=== PATIENT | female | born 1945 | race Caucasian/White ===

== ENCOUNTER 2016-10-12 10:56 | Day surgery (SDC) | payer BC ==
[2016-10-09 11:37] LABS: PATH.CAST-FLAG NOT PRESENT; SPERM-FLAG NOT PRESENT; SRC-FLAG NOT PRESENT; XTAL-FLAG NOT PRESENT; YLC-FLAG NOT PRESENT
[2016-10-09 13:09] VITALS: BP 145/84
[~2016-10-12] VITALS: Ht 165.1 cm; Wt 72.0 kg
[~2016-10-12 10:56] MED LIST: GABA300C10 PO; MELO-190 PO
[2016-10-12] MEDS ORDERED: LACTATED RINGERS 1,000 ML IV SCH (11:21)
[2016-10-12 11:23] VITALS: BP 145/84
[2016-10-12] MEDS ORDERED: MIDAZOLAM 1 MG/ML, 2ML ONE (12:19)
[2016-10-12] MEDS ORDERED: FENTANYL PF 250 MCG/5ML ONE (12:19)
[2016-10-12] MEDS ORDERED: ACETAMINOPHEN 325 MG TABLET PO PRN (13:30)
[2016-10-12] MEDS ORDERED: MIDAZOLAM 1 MG/ML, 2ML IV PRN (13:30)
[2016-10-12] MEDS ORDERED: EPHEDRINE 50 MG/ML, 1ML IVPush PRN (13:30)
[2016-10-12] MEDS ORDERED: hydrALAzine 20 MG/ML, 1ML IV PRN (13:30)
[2016-10-12] MEDS ORDERED: HYDROcodone/APAP 7.5-325MG/15ML UDC PO PRN (13:30)
[2016-10-12] MEDS ORDERED: FENTANYL PF 100 MCG/2ML IV PRN (13:30)
[2016-10-12] MEDS ORDERED: PROMETHAZINE 25 MG/ML, 1ML IV PRN (13:30)
[2016-10-12] MEDS ORDERED: MEPERIDINE/PF 25MG/0.5ML IVPush PRN (13:30)
[2016-10-12] MEDS ORDERED: LABETALOL 5MG/ML, 20ML IV PRN (13:30)
[2016-10-12] MEDS ORDERED: HYDROmorphone 1 MG/ML, 1ML IV PRN (13:30)
[2016-10-12] MEDS ORDERED: OXYcodone 5 MG/5 ML ORAL.SOL UDC PO PRN (13:30)
[2016-10-12] MEDS ORDERED: ONDANSETRON 2MG/ML, 2ML IVPush PRN (13:30)
[2016-10-12] MEDS ORDERED: CIPROFLOXACIN 400MG/200ML PMX ONE (14:16)
[2016-10-12] MEDS ORDERED: PROPOFOL 10 MG/ML, 20ML ONE (14:16)
[2016-10-12] MEDS ORDERED: ONDANSETRON 2MG/ML, 2ML ONE (14:16)
[2016-10-12] MEDS ORDERED: DEXAMETHASONE 4 MG/ML, 1ML ONE (14:16)
[2016-10-12] MEDS ORDERED: OMNIPAQUE 350 MG/ML, 50 ML BOTTLE ONE (15:22)
[2016-10-12] MEDS ORDERED: KETOROLAC 30 MG/1 ML IV PRN (15:30)
[2016-10-12] MEDS ORDERED: OXYcodone/APAP 5/325MG TABLET PO PRN (15:30)
[2016-10-12] MEDS ORDERED: ONDANSETRON 2MG/ML, 2ML IV PRN (15:30)
== END 2016-10-12 17:00 | disposition home or self-care (01) ==
LOC: OUT 10:56
PROVIDERS: ATTEND Urology
DX: N20.1 Calculus of ureter (principal); F17.210 Nicotine dependence, cigarettes, uncomplicated; M19.90 Unspecified osteoarthritis, unspecified site; Z87.440 Personal history of urinary (tract) infections; Z90.49 Acquired absence of other specified parts of digestive tract
CPT/HCPCS: 52356; 74420; 76000; 81001; 82360; 87086; 88300; 93005; C1758; C1769; C2617; J0744; J1100; J2250; J2405; J2704; J3010; J7120; Q9967

== ENCOUNTER 2018-12-29 14:35 | Emergency (ER) | payer BC, OTHER ==
[~2018-12-29] VITALS: Ht 165.1 cm; Wt 70.0 kg
[2018-12-29 14:42] VITALS: BP 126/73
== END 2018-12-29 18:13 | disposition home or self-care (01) ==
LOC: ED 17:51
DX: I82.411 Acute embolism and thrombosis of right femoral vein (principal); I10 Essential (primary) hypertension
CPT/HCPCS: 99284

== ENCOUNTER 2018-12-30 19:33 | Inpatient (IN) | payer OTHER ==
[~2018-12-30] VITALS: Ht 165.1 cm; Wt 77.6 kg
[~2018-12-30 19:33] MED LIST changes: +ACET-1600 PO; +CHOL10003 PO; +GABA400C PO; -MELO-190 PO; +MELO7.5T31 PO; +MULT-717 PO; +OXYC5TAB3 PO; +TURM538C PO; +UBID100C24 PO
[2018-12-30 20:11] LABS: BASOPHILS # (AUTO) 0.04 x10^3/uL (0-0.1); BASOPHILS % (AUTO) 0 % (0-1); EOSINOPHILS # (AUTO) 0.17 x10^3/uL (0-0.4); EOSINOPHILS % (AUTO) 2 % (1-7); LYMPHOCYTES # (AUTO) 1.67 x10^3/uL (1-3.4); LYMPHOCYTES % (AUTO) 15 % (22-44); MD NO; MEAN CORPUSCULAR HEMOGLOBIN 31.2 pg (27.0-34.8); MEAN CORPUSCULAR HGB CONC 31.5 g/dL (32.4-35.8); MEAN PLATELET VOLUME 6.7 fL (7.4-10.4); MONOCYTES # (AUTO) 0.87 x10^3/uL (0.2-0.8); MONOCYTES % (AUTO) 8 % (2-9); NEUTROPHILS # (AUTO) 8.38 x10^3/uL (1.8-6.8); NEUTROPHILS % (AUTO) 75 % (42-75); PLATELET COUNT 508 x10^3/uL (130-400); RED BLOOD COUNT 3.66 x10^6/uL (3.82-5.3)
[2018-12-30 20:23] LABS: ALANINE AMINOTRANSFERASE 23 U/L (12-78); ALBUMIN 3.6 g/dL (3.4-5.0); ANION GAP 6 mmol/L (5-15); CALCIUM 9.2 mg/dL (8.5-10.1); CHLORIDE 102 mmol/L (98-107); CREATININE 1.16 mg/dL (0.55-1.02)
[2018-12-30 20:28] LABS: ALKALINE PHOSPHATASE 262 U/L (45-117); BILIRUBIN,TOTAL 0.7 mg/dL (0.2-1.0); TOTAL PROTEIN 7.9 g/dL (6.4-8.2); TROPONIN I < 0.015 ng/mL (0.000-0.045)
[2018-12-30] MEDS ORDERED: ONDANSETRON 2MG/ML, 2ML ONE (20:46)
[2018-12-30] MEDS ORDERED: MORPHINE SULFATE 4 MG/ML, 1ML ONE ×2 (20:46→21:55)
--- NOTE | 2018-12-30 20:59 | NUR ---
PT TO CT SCAN.
[2018-12-30] MEDS ORDERED: MORPHINE SULFATE 4 MG/ML, 1ML IVPush ONE (21:00)
[2018-12-30] MEDS ORDERED: ONDANSETRON 2MG/ML, 2ML IVPush ONE (21:00)
--- NOTE | 2018-12-30 21:00 | NUR ---
pt refused oxygen. pt a&ox4
--- NOTE | 2018-12-30 21:28 | NUR ---
PT PLACED ON BLOW BY OXYGEN, O2 SAT IMPROVED
[2018-12-30] MEDS ORDERED: OMNIPAQUE 350 MG/ML, 100ML BOTTLE ONE (21:30)
[2018-12-30] MEDS ORDERED: SODIUM CHLORIDE FLUSH 10ML SYR IVF ONE (21:30)
[2018-12-30] MEDS ORDERED: SODIUM CHLORIDE 0.9% 1,000ML IVBOLUS ONE (21:30)
[2018-12-30] MEDS ORDERED: KETOROLAC 30 MG/1 ML ONE (21:54)
[2018-12-30] MEDS ORDERED: HEPARIN 5,000 UNITS/ML, 1ML ONE (21:54)
[2018-12-30] MEDS ORDERED: CEFTRIAXONE PMX 1GM/50ML 50 ML ONE (21:54)
[2018-12-30] MEDS ORDERED: LORazepam 2 MG/ML, 1ML ONE (21:55)
[2018-12-30] MEDS ORDERED: HEPARIN 25,000 UNITS/500ML PMX 500 ML ONE (21:55)
[2018-12-30] MEDS ORDERED: MORPHINE SULFATE 4 MG/ML, 1ML IVPush PRN (22:00)
[2018-12-30] MEDS ORDERED: HEPARIN 25,000 UNITS/500ML PMX 500 ML IV PRN (22:00)
[2018-12-30] MEDS ORDERED: LORazepam 2 MG/ML, 1ML IVP ONE (22:00)
[2018-12-30] MEDS ORDERED: KETOROLAC 30 MG/1 ML IVPush ONE (22:00)
[2018-12-30] MEDS ORDERED: HEPARIN 5,000 UNITS/ML, 1ML IV PRN (22:00)
[2018-12-30] MEDS ORDERED: CEFTRIAXONE 1,000 MG IM ONE (22:00)
[2018-12-30] MEDS ORDERED: AZITHROMYCIN 500 MG in SODIUM CHLORIDE 0.9% 250 ML IVPB ONE (22:00)
[2018-12-30] MEDS ORDERED: HEPARIN 5,000 UNITS/ML, 1ML IV ONE (22:00)
--- NOTE | 2018-12-30 22:21 | NUR ---
verified bolus dose heparin with Chandler MCGUIRE aware of Anti Xa 1.31--states no changes to initial heparin orders.
[2018-12-30] MEDS ORDERED: CEFTRIAXONE PMX 1GM/50ML 50 ML IV ONE (22:30)
--- NOTE | 2018-12-30 23:30 | NUR ---
INTERNAL MED MD AT BEDSIDE ASSESSING THE PATIENT. PT DROWSY, O2 SAT DROPS WITHOUT O2 APPLIED, PT WILL NOT TOLERATE A MASK. MD AWARE. PT RECIEVING BLOWBY OXYGEN AT THIS TIME ..
[2018-12-31] MEDS ORDERED: ONDANSETRON 2MG/ML, 2ML IVPush PRN
[2018-12-31] MEDS ORDERED: SODIUM CHLORIDE 0.9% 1,000ML IVBOLUS ONE
[2018-12-31] MEDS ORDERED: ACETAMINOPHEN 325 MG TABLET PO PRN
[2018-12-31] MEDS ORDERED: PROMETHAZINE 25 MG/ML, 1ML IM PRN
--- NOTE | 2018-12-31 00:03 | NUR ---
DR. CAAL NOTIFIED OF PT BLOOD PRESSURE. WILL CONTACT IM TO UPGRADE TO ICU. PT A&OX4. PT PLACED ON OPTIFLO MASK O2 AT 100%
[2018-12-31] MEDS: GABAPENTIN 400 MG CAPSULE PO SCH ×3 (02:08→20:54)
[2018-12-31 04:15] VITALS: BP 96/42
[2018-12-31 04:35] LABS: BASOPHILS # (AUTO) 0.04 x10^3/uL (0-0.1); BASOPHILS % (AUTO) 1 % (0-1); EOSINOPHILS % (AUTO) 3 % (1-7); LYMPHOCYTES # (AUTO) 1.73 x10^3/uL (1-3.4); LYMPHOCYTES % (AUTO) 23 % (22-44); MD NO; MEAN CORPUSCULAR HEMOGLOBIN 32.6 pg (27.0-34.8); MEAN CORPUSCULAR HGB CONC 32.6 g/dL (32.4-35.8); MEAN CORPUSCULAR VOLUME 100.2 fL (80-100); MEAN PLATELET VOLUME 6.9 fL (7.4-10.4); MONOCYTES # (AUTO) 0.83 x10^3/uL (0.2-0.8); MONOCYTES % (AUTO) 11 % (2-9); NEUTROPHILS # (AUTO) 4.86 x10^3/uL (1.8-6.8); NEUTROPHILS % (AUTO) 63 % (42-75); PLATELET COUNT 325 x10^3/uL (130-400); RED BLOOD COUNT 2.76 x10^6/uL (3.82-5.3); RED CELL DISTRIBUTION WIDTH 16.6 % (9.6-15.2)
[2018-12-31 04:47] LABS: ANION GAP 6 mmol/L (5-15); CALCIUM 8.2 mg/dL (8.5-10.1); CHLORIDE 108 mmol/L (98-107)
[2018-12-31 04:52] LABS: CREATININE 0.81 mg/dL (0.55-1.02); TROPONIN I < 0.015 ng/mL (0.000-0.045)
[2018-12-31] MEDS: morphine SULFATE 10 MG/ML, 1ML IVPush PRN ×2 (05:19→15:39)
[2018-12-31] MEDS: CHOLECALCIFEROL 1,000 UNIT TABLET PO SCH (10:43)
[2018-12-31] MEDS: OXYcodone/APAP 5/325MG TABLET PO PRN ×3 (10:43→23:00)
[2018-12-31] MEDS: SENNA/DOCUSATE TABLET PO SCH (10:44)
[2018-12-31 11:25] LABS: TROPONIN I < 0.015 ng/mL (0.000-0.045)
[2018-12-31 20:10] VITALS: BP 137/51
[2019-01-01] MEDS: OXYcodone/APAP 5/325MG TABLET PO PRN ×3 (02:44→20:19)
[2019-01-01 04:00] VITALS: BP 110/57
[2019-01-01 06:18] LABS: BASOPHILS # (AUTO) 0.05 x10^3/uL (0-0.1); BASOPHILS % (AUTO) 1 % (0-1); EOSINOPHILS # (AUTO) 0.22 x10^3/uL (0-0.4); EOSINOPHILS % (AUTO) 3 % (1-7); LYMPHOCYTES # (AUTO) 1.29 x10^3/uL (1-3.4); LYMPHOCYTES % (AUTO) 18 % (22-44); MD NO; MEAN CORPUSCULAR HEMOGLOBIN 32.5 pg (27.0-34.8); MEAN CORPUSCULAR HGB CONC 32.5 g/dL (32.4-35.8); MEAN CORPUSCULAR VOLUME 100.1 fL (80-100); MEAN PLATELET VOLUME 6.9 fL (7.4-10.4); MONOCYTES # (AUTO) 0.87 x10^3/uL (0.2-0.8); MONOCYTES % (AUTO) 12 % (2-9); NEUTROPHILS # (AUTO) 4.56 x10^3/uL (1.8-6.8); NEUTROPHILS % (AUTO) 65 % (42-75); PLATELET COUNT 311 x10^3/uL (130-400); RED BLOOD COUNT 2.69 x10^6/uL (3.82-5.3); RED CELL DISTRIBUTION WIDTH 16.1 % (9.6-15.2)
[2019-01-01 06:29] LABS: ANION GAP 6 mmol/L (5-15); CALCIUM 8.7 mg/dL (8.5-10.1); CHLORIDE 105 mmol/L (98-107); CREATININE 0.67 mg/dL (0.55-1.02)
[2019-01-01] MEDS: GABAPENTIN 400 MG CAPSULE PO SCH ×2 (09:13→20:19)
[2019-01-01] MEDS: RIVAROXABAN 15 MG TABLET PO SCH ×2 (09:13→20:19)
[2019-01-01] MEDS: SENNA/DOCUSATE TABLET PO SCH (09:14)
[2019-01-01] MEDS: CHOLECALCIFEROL 1,000 UNIT TABLET PO SCH (09:14)
[2019-01-01 13:47] VITALS: BP 116/69
[2019-01-01 21:23] VITALS: BP 121/59
[2019-01-02 01:45] VITALS: BP 96/56
[2019-01-02] MEDS: OXYcodone/APAP 5/325MG TABLET PO PRN ×2 (04:38→20:35)
[2019-01-02 05:47] LABS: BASOPHILS # (AUTO) 0.03 x10^3/uL (0-0.1); BASOPHILS % (AUTO) 1 % (0-1); EOSINOPHILS # (AUTO) 0.22 x10^3/uL (0-0.4); EOSINOPHILS % (AUTO) 3 % (1-7); LYMPHOCYTES # (AUTO) 1.39 x10^3/uL (1-3.4); LYMPHOCYTES % (AUTO) 19 % (22-44); MD NO; MEAN CORPUSCULAR HEMOGLOBIN 32.5 pg (27.0-34.8); MEAN CORPUSCULAR HGB CONC 32.6 g/dL (32.4-35.8); MEAN CORPUSCULAR VOLUME 99.5 fL (80-100); MEAN PLATELET VOLUME 7.1 fL (7.4-10.4); MONOCYTES # (AUTO) 0.79 x10^3/uL (0.2-0.8); MONOCYTES % (AUTO) 11 % (2-9); NEUTROPHILS # (AUTO) 4.91 x10^3/uL (1.8-6.8); NEUTROPHILS % (AUTO) 67 % (42-75); PLATELET COUNT 350 x10^3/uL (130-400); RED BLOOD COUNT 2.72 x10^6/uL (3.82-5.3); RED CELL DISTRIBUTION WIDTH 16.1 % (9.6-15.2)
[2019-01-02 05:59] LABS: ANION GAP 4 mmol/L (5-15); CALCIUM 8.9 mg/dL (8.5-10.1); CHLORIDE 105 mmol/L (98-107)
[2019-01-02 06:01] LABS: CREATININE 0.78 mg/dL (0.55-1.02)
[2019-01-02 07:10] VITALS: BP 95/50
[2019-01-02] MEDS: SENNA/DOCUSATE TABLET PO SCH (09:23)
[2019-01-02] MEDS: CHOLECALCIFEROL 1,000 UNIT TABLET PO SCH (09:24)
[2019-01-02] MEDS: GABAPENTIN 400 MG CAPSULE PO SCH ×2 (09:24→20:25)
[2019-01-02] MEDS: RIVAROXABAN 15 MG TABLET PO SCH ×2 (09:24→20:25)
[2019-01-02 13:17] VITALS: BP 119/64
[2019-01-02 13:34] LABS: ALANINE AMINOTRANSFERASE 18 U/L (12-78); ALBUMIN 2.5 g/dL (3.4-5.0)
[2019-01-02 13:35] LABS: ALKALINE PHOSPHATASE 164 U/L (45-117); BILIRUBIN,TOTAL 0.2 mg/dL (0.2-1.0); TOTAL PROTEIN 6.2 g/dL (6.4-8.2)
[2019-01-02 13:41] LABS: BILIRUBIN, DIRECT < 0.1 mg/dL (0.1-0.2); BILIRUBIN,INDIRECT 0.1 mg/dL (0.0-2.0)
[2019-01-02 19:36] VITALS: BP 121/60
[2019-01-03 01:19] VITALS: BP 106/67
[2019-01-03 07:34] VITALS: BP 128/66
[2019-01-03] MEDS: CHOLECALCIFEROL 1,000 UNIT TABLET PO SCH (10:06)
[2019-01-03] MEDS: RIVAROXABAN 15 MG TABLET PO SCH (10:07)
[2019-01-03] MEDS: SENNA/DOCUSATE TABLET PO SCH (10:07)
[2019-01-03] MEDS: GABAPENTIN 400 MG CAPSULE PO SCH (10:07)
[2019-01-03] MEDS ORDERED: SENN-193 PO (11:28)
[2019-01-03] MEDS ORDERED: POLY17PO15 PO (11:28)
[2019-01-03] MEDS ORDERED: RIVA1TAB PO (11:28)
[2019-01-03] MEDS ORDERED: MAGNESIUM CITRATE 300ML ORAL SOL PO ONE (11:30)
[2019-01-03 12:57] VITALS: BP 112/66
[2019-01-03] MEDS ORDERED: HYDR-3240 PO (14:57)
== END 2019-01-03 15:12 | disposition home or self-care (01) | DRG 175 ==
LOC: ED 21:09 → EDIP 22:33 → CCU 12-31 01:24 → 4WST 01-01 10:25 → DCLOUNGE 01-03 14:55
PROVIDERS: ADMIT Family Medicine; ATTEND Family Medicine
DX: I26.99 Other pulmonary embolism without acute cor pulmonale (principal); J96.01 Acute respiratory failure with hypoxia; I82.4Z1 Acute embolism and thrombosis of unspecified deep veins of right distal lower extremity; J43.9 Emphysema, unspecified; I10 Essential (primary) hypertension; D64.9 Anemia, unspecified; G89.29 Other chronic pain; M54.9 Dorsalgia, unspecified; E86.0 Dehydration; I35.8 Other nonrheumatic aortic valve disorders; Z96.642 Presence of left artificial hip joint; Z87.891 Personal history of nicotine dependence; Z90.49 Acquired absence of other specified parts of digestive tract; Z98.1 Arthrodesis status
CPT/HCPCS: 36415; 71045; 71275; 80048; 80053; 80076; 83735; 83880; 84100; 84484; 85025; 85520; 87040; 87081; 93005; 93306; 96361; 96374; 96375; 96376; G0378; J0456; J0696; J1644; J1885; J2405; Q9967; J2060; J2270; J7030; J7050

== ENCOUNTER 2019-06-14 16:24 | Emergency (ER) | payer BC ==
[~2019-06-14] VITALS: Ht 167.6 cm; Wt 79.4 kg
[~2019-06-14 16:24] MED LIST changes: +HYDR-3240 PO; +POLY17PO15 PO; +RIVA1TAB PO; +SENN-193 PO
--- NOTE | 2019-06-14 16:49 | NUR ---
TABLE ASSEMBLER: PT UPSET ABOUT WAIT TIME. ASKING THIS RN IF THEY SHOULD LEAVE AND COME BACK IN THREE HOURS. EDUCATED ON RECOMMENDATION TO REMAIN IN ED LOBBY FOR ROOM/CHANGES THAT CAN BE NOTIFIED IMMEDIATELY. PT AND FAMILY REMAIN UPSET ABOUT WAIT TIME. RE-EDUCATED TO WAIT IN ED LOBBY FOR ROOM.
[2019-06-14 17:16] LABS: BASOPHILS # (AUTO) 0.04 x10^3/uL (0-0.1); BASOPHILS % (AUTO) 1 % (0-1); EOSINOPHILS # (AUTO) 0.09 x10^3/uL (0-0.4); EOSINOPHILS % (AUTO) 1 % (1-7); LYMPHOCYTES # (AUTO) 2.02 x10^3/uL (1-3.4); LYMPHOCYTES % (AUTO) 27 % (22-44); MD NO; MEAN CORPUSCULAR HEMOGLOBIN 29.8 pg (27.0-34.8); MEAN CORPUSCULAR HGB CONC 32.6 g/dL (32.4-35.8); MEAN CORPUSCULAR VOLUME 91.4 fL (80-100); MEAN PLATELET VOLUME 7.8 fL (7.4-10.4); MONOCYTES % (AUTO) 7 % (2-9); NEUTROPHILS # (AUTO) 4.74 x10^3/uL (1.8-6.8); NEUTROPHILS % (AUTO) 64 % (42-75); PLATELET COUNT 386 x10^3/uL (130-400); RED BLOOD COUNT 4.51 x10^6/uL (3.82-5.3); RED CELL DISTRIBUTION WIDTH 15.5 % (9.6-15.2)
[2019-06-14 17:27] LABS: ALANINE AMINOTRANSFERASE 20 U/L (12-78); ALBUMIN 3.6 g/dL (3.4-5.0); ANION GAP 7 mmol/L (5-15); CALCIUM 8.9 mg/dL (8.5-10.1); CHLORIDE 108 mmol/L (98-107); CREATININE 1.06 mg/dL (0.55-1.02)
[2019-06-14 17:31] LABS: ALKALINE PHOSPHATASE 132 U/L (45-117); BILIRUBIN,TOTAL 0.2 mg/dL (0.2-1.0); TOTAL PROTEIN 7.7 g/dL (6.4-8.2)
--- NOTE | 2019-06-14 20:33 | NUR ---
REPORT FROM ZACH HORN.
[2019-06-14 20:34] VITALS: BP 115/69
--- NOTE | 2019-06-14 20:35 | NUR ---
REPORT TO LINCOLN SERRANO TO CT SCAN AT 2036
[2019-06-14] MEDS ORDERED: OMNIPAQUE 350 MG/ML, 100ML BOTTLE ONE (20:57)
== END 2019-06-14 22:09 | disposition home or self-care (01) ==
LOC: ED 21:45
DX: R91.1 Solitary pulmonary nodule (principal); R04.2 Hemoptysis; I10 Essential (primary) hypertension; Z86.718 Personal history of other venous thrombosis and embolism; Z87.891 Personal history of nicotine dependence
CPT/HCPCS: 36415; 71046; 71275; 80053; 83880; 84145; 85025; 87633; 93005; 93971; 99284; Q9967

== ENCOUNTER → 2019-08-24 | Outpatient (CLI) | payer BC | END | disposition home or self-care (01) | LOC: CFH 10:34 | PROVIDERS: ATTEND Internal Medicine | DX: J43.9 Emphysema, unspecified (principal); J18.9 Pneumonia, unspecified organism; I70.0 Atherosclerosis of aorta | CPT/HCPCS: 71250 ==

== ENCOUNTER → 2020-01-09 | Outpatient (CLI) | payer BC | END | disposition home or self-care (01) | LOC: CFH 13:51 | PROVIDERS: ATTEND Family Medicine | DX: J43.9 Emphysema, unspecified (principal); R91.1 Solitary pulmonary nodule | CPT/HCPCS: 71250 ==

== ENCOUNTER → 2020-01-25 | Outpatient (CLI) | payer BC ==
[~2020-01-25] MED LIST changes: +MAGN250T8 PO; +OLME20TA17 PO; +RIVA20TA PO
[2020-01-25 15:36] LABS: ALBUMIN 3.9 g/dL (3.4-5.0); ANION GAP 10 mmol/L (5-15); CALCIUM 8.9 mg/dL (8.5-10.1); CHLORIDE 108 mmol/L (98-107)
[2020-01-25 15:39] LABS: ALANINE AMINOTRANSFERASE 20 U/L (12-78); ALKALINE PHOSPHATASE 122 U/L (45-117); BILIRUBIN,TOTAL 0.6 mg/dL (0.2-1.0); CREATININE 1.12 mg/dL (0.55-1.02); TOTAL PROTEIN 8.2 g/dL (6.4-8.2)
== END | disposition home or self-care (01) ==
LOC: STAR 13:24
PROVIDERS: ATTEND Internal Medicine
DX: Z01.818 Encounter for other preprocedural examination (principal); Z11.59 Encounter for screening for other viral diseases; I44.5 Left posterior fascicular block; I45.10 Unspecified right bundle-branch block; I51.7 Cardiomegaly
CPT/HCPCS: 36415; 80053; 87635; 93005

== ENCOUNTER → 2020-01-30 | Outpatient (CLI) | payer BC | END | disposition home or self-care (01) | LOC: PETCFH 13:24 | PROVIDERS: ATTEND Internal Medicine | DX: R91.8 Other nonspecific abnormal finding of lung field (principal); J43.9 Emphysema, unspecified; G89.29 Other chronic pain; I10 Essential (primary) hypertension; Z90.49 Acquired absence of other specified parts of digestive tract; Z96.642 Presence of left artificial hip joint | CPT/HCPCS: 71250; 78815; A9552 ==

== ENCOUNTER 2020-01-31 11:19 | Day surgery (SDC) | payer BC ==
[~2020-01-31] VITALS: Ht 165.1 cm; Wt 77.5 kg
[2020-01-31] MEDS ORDERED: PROPOFOL 50 ML ONE ×2 (11:40→13:57)
[2020-01-31] MEDS ORDERED: ROCURONIUM 10MG/ML,5ML ONE (11:40)
[2020-01-31] MEDS ORDERED: MIDAZOLAM 1 MG/ML, 2ML ONE (11:40)
[2020-01-31] MEDS ORDERED: FENTANYL PF 250 MCG/5ML ONE (11:40)
[2020-01-31 11:47] VITALS: BP 124/78
[2020-01-31] MEDS ORDERED: CHLORHEXIDINE 15 ML UDC MM ONE (12:00)
[2020-01-31] MEDS ORDERED: LACTATED RINGERS 1,000 ML IV SCH (12:00)
[2020-01-31] MEDS ORDERED: SUGAMMADEX 200 MG/2 ML IVPush ONE (13:17)
[2020-01-31] MEDS ORDERED: ONDANSETRON 2MG/ML, 2ML ONE (13:17)
[2020-01-31] MEDS ORDERED: OXYcodone 5 MG/5 ML ORAL.SOL UDC PO PRN (13:30)
[2020-01-31] MEDS ORDERED: ACETAMINOPHEN 325 MG TABLET PO PRN (13:30)
[2020-01-31] MEDS ORDERED: ONDANSETRON 2MG/ML, 2ML IVPush PRN (13:30)
[2020-01-31] MEDS ORDERED: HYDROmorphone 1 MG/ML, 1ML INJ IVPush PRN (13:30)
[2020-01-31] MEDS ORDERED: PROMETHAZINE 25 MG/ML, 1ML IVPush PRN (13:30)
[2020-01-31] MEDS ORDERED: DIAZEPAM 5 MG/ML, 2ML IVPush PRN (13:30)
[2020-01-31] MEDS ORDERED: LABETALOL 5MG/ML, 20ML IV PRN (13:30)
[2020-01-31] MEDS ORDERED: hydrALAzine 20 MG/ML, 1ML IV PRN (13:30)
[2020-01-31] MEDS ORDERED: FENTANYL PF 100 MCG/2ML IV PRN (13:30)
[2020-02-22] MEDS ORDERED: METO25TA35 PO (15:22)
== END 2020-01-31 16:00 | disposition home or self-care (01) ==
LOC: OUT 11:19
PROVIDERS: ATTEND Internal Medicine
DX: R91.8 Other nonspecific abnormal finding of lung field (principal); C34.31 Malignant neoplasm of lower lobe, right bronchus or lung; I10 Essential (primary) hypertension; E03.9 Hypothyroidism, unspecified; J43.9 Emphysema, unspecified; Z79.01 Long term (current) use of anticoagulants; Z79.899 Other long term (current) drug therapy; Z88.0 Allergy status to penicillin; Z88.1 Allergy status to other antibiotic agents; Z91.040 Latex allergy status; Z91.048 Other nonmedicinal substance allergy status; Z86.718 Personal history of other venous thrombosis and embolism; Z86.711 Personal history of pulmonary embolism
CPT/HCPCS: 31623; 31624; 31627; 31628; 71045; 88172; 88173; 88305; J2250; J2405; J2704; J3010; J7120; 31625; 31629; 76000

== ENCOUNTER → 2020-02-22 | Outpatient (CLI) | payer BC ==
[~2020-02-22] MED LIST changes: +METO25TA35 PO
[2020-02-22 15:50] LABS: BASOPHILS # (AUTO) 0.06 x10^3/uL (0-0.1); BASOPHILS % (AUTO) 1 % (0-1); EOSINOPHILS # (AUTO) 0.07 x10^3/uL (0-0.4); EOSINOPHILS % (AUTO) 1 % (1-7); LYMPHOCYTES # (AUTO) 1.82 x10^3/uL (1-3.4); LYMPHOCYTES % (AUTO) 29 % (22-44); MD NO; MEAN CORPUSCULAR HEMOGLOBIN 30.4 pg (27.0-34.8); MEAN CORPUSCULAR HGB CONC 32.2 g/dL (32.4-35.8); MEAN CORPUSCULAR VOLUME 94.4 fL (80-100); MEAN PLATELET VOLUME 7.4 fL (7.4-10.4); MONOCYTES % (AUTO) 6 % (2-9); NEUTROPHILS # (AUTO) 4.03 x10^3/uL (1.8-6.8); NEUTROPHILS % (AUTO) 63 % (42-75); PLATELET COUNT 333 x10^3/uL (130-400); RED BLOOD COUNT 4.24 x10^6/uL (3.82-5.3); RED CELL DISTRIBUTION WIDTH 15.1 % (9.6-15.2)
[2020-02-22 15:57] LABS: ALBUMIN 3.6 g/dL (3.4-5.0); ANION GAP 6 mmol/L (5-15); CALCIUM 9.4 mg/dL (8.5-10.1); CHLORIDE 108 mmol/L (98-107)
[2020-02-22 16:01] LABS: ALANINE AMINOTRANSFERASE 20 U/L (12-78); ALKALINE PHOSPHATASE 113 U/L (45-117); BILIRUBIN,TOTAL 0.5 mg/dL (0.2-1.0); TOTAL PROTEIN 7.7 g/dL (6.4-8.2)
== END | disposition home or self-care (01) ==
LOC: STAR 14:21
PROVIDERS: ATTEND Surgery
DX: Z01.812 Encounter for preprocedural laboratory examination (principal); Z20.828 Contact with and (suspected) exposure to other viral communicable diseases
CPT/HCPCS: 36415; 80053; 85025; 87635

== ENCOUNTER 2020-02-26 06:05 | Inpatient (IN) | payer MEDICARE, BC ==
[~2020-02-26] VITALS: Ht 166.4 cm; Wt 83.1 kg
[2020-02-26] MEDS ORDERED: LACTATED RINGERS 1,000 ML IV SCH (06:42)
[2020-02-26] MEDS ORDERED: LIDOCAINE-MPF 1%, 2ML INFIL ONE (07:00)
[2020-02-26] MEDS ORDERED: CHLORHEXIDINE 15 ML UDC MM ONE (07:00)
[2020-02-26] MEDS ORDERED: BUPIVACAINE/PF 0.5% ONE (07:01)
[2020-02-26] MEDS ORDERED: EPINEPHRINE 1 MG/ML, 1ML ONE (07:01)
[2020-02-26] MEDS ORDERED: FENTANYL PF 250 MCG/5ML ONE (07:29)
[2020-02-26] MEDS ORDERED: MIDAZOLAM 1 MG/ML, 2ML ONE (07:29)
[2020-02-26] MEDS ORDERED: CEFAZOLIN 1,000 MG ONE (07:54)
[2020-02-26] MEDS ORDERED: LIDOCAINE-MPF 2% ,5ML ONE (07:54)
[2020-02-26] MEDS ORDERED: BUPIVACAINE/PF-EPI 0.5% 1:200K INFIL ONE (08:27)
[2020-02-26] MEDS ORDERED: OXYcodone 5 MG/5 ML ORAL.SOL UDC PO PRN (09:00)
[2020-02-26] MEDS ORDERED: LABETALOL 5MG/ML, 20ML IV PRN (09:00)
[2020-02-26] MEDS ORDERED: ONDANSETRON 2MG/ML, 2ML IVPush PRN ×2 (09:00→11:30)
[2020-02-26] MEDS ORDERED: hydrALAzine 20 MG/ML, 1ML IV PRN (09:00)
[2020-02-26] MEDS ORDERED: HYDROmorphone 1 MG/ML, 1ML INJ IVPush PRN (09:00)
[2020-02-26] MEDS ORDERED: PROMETHAZINE 25 MG SUPP PR PRN (09:00)
[2020-02-26] MEDS ORDERED: ACETAMINOPHEN 325 MG TABLET PO PRN (09:00)
[2020-02-26] MEDS ORDERED: LORazepam 2 MG/ML, 1ML IVPush PRN (09:00)
[2020-02-26] MEDS ORDERED: PROMETHAZINE 25 MG/ML, 1ML IVPush PRN (09:00)
[2020-02-26] MEDS ORDERED: ALBUTEROL SULFATE 2.5 MG/3 ML NPPB PRN (09:00)
[2020-02-26] MEDS ORDERED: DEXAMETHASONE 4 MG/ML, 1ML ONE (10:00)
[2020-02-26] MEDS ORDERED: GLYCOPYRROLATE 0.2MG/1ML, 5ML ONE (10:00)
[2020-02-26] MEDS ORDERED: SUCCINYLCHOLINE 20 MG/ML, 10ML ONE (10:00)
[2020-02-26] MEDS ORDERED: NEOSTIGMINE 1 MG/ML, 10ML ONE (10:00)
[2020-02-26] MEDS ORDERED: PROPOFOL 10 MG/ML, 20ML ONE (10:00)
[2020-02-26] MEDS ORDERED: ONDANSETRON 2MG/ML, 2ML ONE (10:00)
[2020-02-26] MEDS ORDERED: ROCURONIUM 10 MG/ML,10ML ONE ×2 (10:00)
[2020-02-26] MEDS ORDERED: SUGAMMADEX 200 MG/2 ML IVPush ONE (10:15)
[2020-02-26] MEDS ORDERED: FENTANYL PF 100 MCG/2ML ONE ×2 (10:23→11:21)
[2020-02-26] MEDS ORDERED: LORazepam 2 MG/ML, 1ML ONE (11:21)
[2020-02-26] MEDS: FENTANYL PF 100 MCG/2ML IV PRN ×2 (11:24→11:52)
[2020-02-26] MEDS ORDERED: ACETAMINOPHEN 650 MG SUPP PR SCH (11:30)
[2020-02-26] MEDS ORDERED: HYDROmorphone PCA 30 MG/30 ML IVPush PRN (11:30)
[2020-02-26] MEDS ORDERED: hydrALAzine 20 MG/ML, 1ML IVPush PRN (11:30)
[2020-02-26] MEDS ORDERED: LORazepam 1MG TABLET PO PRN (11:30)
[2020-02-26] MEDS ORDERED: LABETALOL 5MG/ML 40ML VIAL IVPush PRN (11:30)
[2020-02-26 13:00] VITALS: BP 154/87
[2020-02-26] MEDS: HEPARIN 5,000 UNITS/ML, 1ML SQ SCH ×2 (14:52→23:18)
[2020-02-26] MEDS: KETOROLAC 30 MG/1 ML IVPush SCH ×2 (14:52→21:46)
[2020-02-26] MEDS: D5%-0.45NACL+KCL 20MEQ 1,000 ML IV SCH (15:05)
[2020-02-26] MEDS: ACETAMINOPHEN 500 MG TABLET PO SCH ×2 (16:05→21:46)
[2020-02-26] MEDS: METOPROLOL TARTRATE 25 MG TAB PO SCH (18:41)
[2020-02-26 20:35] VITALS: BP 172/85
[2020-02-26] MEDS ORDERED: GLYCERIN ADULT SUPP PR PRN (21:30)
[2020-02-26] MEDS ORDERED: POLYETHYLENE GLYCOL 17 GM PACKET NG PRN (21:30)
[2020-02-26] MEDS: SENNA/DOCUSATE TABLET PO SCH (21:45)
[2020-02-27 01:42] VITALS: BP 158/80
[2020-02-27] MEDS: D5%-0.45NACL+KCL 20MEQ 1,000 ML IV SCH ×2 (02:43→07:34)
[2020-02-27] MEDS: ACETAMINOPHEN 500 MG TABLET PO SCH ×4 (03:30→21:33)
[2020-02-27 03:55] VITALS: BP 134/75
[2020-02-27] MEDS: KETOROLAC 30 MG/1 ML IVPush SCH ×3 (05:06→21:33)
[2020-02-27 05:46] LABS: CHLORIDE 108 mmol/L (98-107)
[2020-02-27 05:54] LABS: ANION GAP 7 mmol/L (5-15); CALCIUM 9.1 mg/dL (8.5-10.1); CREATININE 0.87 mg/dL (0.55-1.02)
[2020-02-27 06:17] LABS: MEAN CORPUSCULAR HEMOGLOBIN 30.9 pg (27.0-34.8); MEAN CORPUSCULAR HGB CONC 32.4 g/dL (32.4-35.8); MEAN CORPUSCULAR VOLUME 95.2 fL (80-100); MEAN PLATELET VOLUME 7.7 fL (7.4-10.4); PLATELET COUNT 287 x10^3/uL (130-400); RED BLOOD COUNT 3.68 x10^6/uL (3.82-5.3); RED CELL DISTRIBUTION WIDTH 15.3 % (9.6-15.2)
[2020-02-27] MEDS: METOPROLOL TARTRATE 25 MG TAB PO SCH ×2 (06:37→17:58)
[2020-02-27] MEDS: HEPARIN 5,000 UNITS/ML, 1ML SQ SCH ×2 (06:37→15:27)
[2020-02-27 06:38] LABS: BASOPHILS # (AUTO) 0.03 x10^3/uL (0-0.1); BASOPHILS % (AUTO) 0 % (0-1); EOSINOPHILS % (AUTO) 0 % (1-7); LYMPHOCYTES # (AUTO) 1.08 x10^3/uL (1-3.4); LYMPHOCYTES % (AUTO) 12 % (22-44); MD SCAN; MONOCYTES # (AUTO) 0.64 x10^3/uL (0.2-0.8); MONOCYTES % (AUTO) 7 % (2-9); NEUTROPHILS % (AUTO) 81 % (42-75)
[2020-02-27 08:12] VITALS: BP 136/81
[2020-02-27] MEDS: MAGNESIUM OXIDE 400 MG TABLET PO SCH (08:41)
[2020-02-27] MEDS: SENNA/DOCUSATE TABLET PO SCH ×2 (08:41→21:33)
[2020-02-27] MEDS: GABAPENTIN 400 MG CAPSULE PO SCH (08:41)
[2020-02-27] MEDS: LOSARTAN 100 MG TAB PO SCH (08:42)
[2020-02-27 12:02] VITALS: BP 158/87
[2020-02-27 20:30] VITALS: BP 148/83
[2020-02-28 00:23] VITALS: BP 113/65
[2020-02-28] MEDS: HEPARIN 5,000 UNITS/ML, 1ML SQ SCH (00:33)
[2020-02-28] MEDS: ACETAMINOPHEN 500 MG TABLET PO SCH (05:35)
[2020-02-28] MEDS: KETOROLAC 30 MG/1 ML IVPush SCH (05:35)
[2020-02-28] MEDS: METOPROLOL TARTRATE 25 MG TAB PO SCH (05:40)
[2020-02-28 06:58] VITALS: BP 127/76
[2020-02-28] MEDS ORDERED: RIVAROXABAN 20 MG TABLET ONE (08:30)
[2020-02-28] MEDS ORDERED: OXYcodone IR 5MG TABLET PO PRN (08:30)
[2020-02-28] MEDS ORDERED: RIVAROXABAN 20 MG TABLET PO SCH (09:00)
[2020-02-28] MEDS ORDERED: IBUPROFEN 800 MG TABLET PO SCH (09:00)
[2020-02-28] MEDS: SENNA/DOCUSATE TABLET PO SCH (09:12)
[2020-02-28] MEDS: GABAPENTIN 400 MG CAPSULE PO SCH (09:12)
[2020-02-28] MEDS: LOSARTAN 100 MG TAB PO SCH (09:12)
[2020-02-28] MEDS: MAGNESIUM OXIDE 400 MG TABLET PO SCH (09:13)
== END 2020-02-28 11:08 | disposition home or self-care (01) | DRG 165 ==
LOC: ORIP 06:05 → 4NE 12:44 → DCLOUNGE 02-28 10:55
PROVIDERS: ADMIT Surgery; ATTEND Surgery
PROC: 07B74ZX Excision of Thorax Lymphatic, Percutaneous Endoscopic Approach, Diagnostic (ICD-10-PCS; 2020-02-26)
PROC: 0BTF4ZZ Resection of Right Lower Lung Lobe, Percutaneous Endoscopic Approach (ICD-10-PCS; principal; 2020-02-26 07:30)
DX: C34.31 Malignant neoplasm of lower lobe, right bronchus or lung (principal); Z86.711 Personal history of pulmonary embolism; Z86.718 Personal history of other venous thrombosis and embolism; Z88.1 Allergy status to other antibiotic agents; Z91.040 Latex allergy status; Z91.048 Other nonmedicinal substance allergy status
CPT/HCPCS: 36415; 36600; 71045; 80048; 82803; 85025; 86850; 86900; 88305; 88309; C1729; G0378; J0171; J0690; J1100; J1644; J1885; J2250; J2405; J2704; J2710; J3010; C1760; J0330; J3480; J7120

== ENCOUNTER → 2020-05-13 | Outpatient (CLI) | payer BC | END | disposition home or self-care (01) | LOC: CFH 13:34 | PROVIDERS: ATTEND Internal Medicine | DX: C34.31 Malignant neoplasm of lower lobe, right bronchus or lung (principal); I77.810 Thoracic aortic ectasia; J98.4 Other disorders of lung; J43.9 Emphysema, unspecified; M85.88 Other specified disorders of bone density and structure, other site | CPT/HCPCS: 71250 ==

== ENCOUNTER → 2020-10-23 | Outpatient (CLI) | payer BC ==
[~2020-10-23] MED LIST changes: +HYDR-2214 PO; -HYDR-3240 PO; -OXYC5TAB3 PO; +OXYC5TAB98 PO
== END | disposition home or self-care (01) ==
LOC: CFH 13:18
PROVIDERS: ATTEND Internal Medicine
DX: R91.8 Other nonspecific abnormal finding of lung field (principal)
CPT/HCPCS: 71250